=== PATIENT | male | born 1985 | race Caucasian/White ===

== ENCOUNTER 2023-01-02 23:44 | Emergency (ER) | payer BC, SELFPAY ==
[2023-01-02 23:53] VITALS: BP 147/92; PULSE 98; RESP 18; TEMP 36.4; O2SAT 97
[2023-01-03 02:59] LABS: Influenza A QL RT-PCR Negative (Negative); Influenza B QL RT-PCR Negative (Negative); RSV RNA, RT-PCR Negative (Negative); SARS-CoV-2 RNA PCR Negative (Negative)
[2023-01-03 03:02] LABS: Strep Group A RT-PCR NOT DETECTED (Negative)
== END 2023-01-03 05:04 | disposition left against medical advice (07) ==
PROVIDERS: Emergency Provider Emergency Medicine
DX: J02.9 Acute pharyngitis, unspecified (principal); Z20.822 Contact with and (suspected) exposure to COVID-19
CPT/HCPCS: 87637; 87651; 99199